=== PATIENT | male | born 1975 | race Caucasian/White ===

== ENCOUNTER 2018-10-28 18:04 | Inpatient (IN) ==
[2018-10-28] MEDS ORDERED: TYLENOL PO ONE (20:12)
[2018-10-28 21:02] LABS: AGAP 12; ALBUMIN 4.2 g/dL (3.5-5.0); ALKALINE PHOSPHATASE 138 U/L (32-122); BUN 18 mg/dL (8-22); CALCIUM 8.8 mg/dL (8.8-10.2); CHLORIDE 98 mmol/L (98-107); COSMO 275; CREATININE 1.1 mg/dL (0.7-1.2); ESTIMATED GFR > 60; GLUCOSE 156 mg/dL (70-104); GOT 10 U/L (10-34); GPT 7 U/L (10-44); SODIUM 135 mmol/L (136-145); TCO2 25 mmol/L (25-35)
[2018-10-28 21:06] LABS: BASO# 0.06 X1000 (0.0-0.2); BASO% 0.3 % (0.0-0.8); EOS# 0.25 X1000 (0.0-0.7); EOS% 1.2 % (0.0-10.0); HEMATOCRIT 40.7 % (42.0-52.0); HEMOGLOBIN 13.1 g/dL (14.0-18.0); IMM GRAN# 0.06 X1000 (0.0-0.04); IMM GRAN% 0.3 % (0.0-0.5); LYMPH# 1.91 X1000 (1.2-3.4); MCH 27.2 PG (27-31); MCHC 32.2 g/dL (33-37); MCV 84.4 FL (81-99); MONO# 1.27 X1000 (0.11-0.59); MPV 11.3 FL (7.4-10.4); NEUT# 17.68 X1000 (1.4-6.5); NEUT% 83.2 % (42.2-75.2); PLT 307 X1000 (130-400); RBC 4.82 XMIL (4.7-6.1); WBC 21.23 X1000 (4.8-10.8)
[2018-10-28] MEDS ORDERED: VANCOMYCIN 1 GM/NS 1 GM/250 ML IVPB IV ONE (21:49)
[2018-10-28] MEDS ORDERED: ZOSYN 3.375 GM in NS 50 ML IV ONE (21:49)
[2018-10-28] MEDS ORDERED: DILAUDID IV ONE (21:49)
[2018-10-28] MEDS ORDERED: ZOFRAN IV ONE (21:49)
--- NOTE | 2018-10-28 21:59 | Diag Imaging Result Doc PS360 ---
EXAM: FOOT COMPLETE LEFT INDICATION: foot wound TECHNIQUE: 3 views COMPARISON: 08/20/2018 FINDINGS: No bony erosion is identified. There is no discrete fracture, dislocation, or significant intrinsic osseous lesion, otherwise. The visualized joint spaces are essentially unremarkable. There is prominent soft tissue edema at the lateral aspect foot and at the dorsum of the foot. There are droplets of subcutaneous gas at the lateral aspect of the forefoot. IMPRESSION: Findings suggesting severe cellulitis. There is no radiographic evidence of osteomyelitis on this study, however. Electronically signed by Butch Mccallum 10/28/2018 9:57 PM
--- NOTE | 2018-10-28 22:08 | PROVIDER DOCUMENTATION ---
This chart was entered by Angela Hodges Scribe, acting as scribe for Hernando Eldridge MD. HPI-Rash/Wound/ReCheck - General Chief Complaint: Sores/Lesions Stated Complaint: EXTREMITY SWELLING Time Seen by Provider: 10/28/18 20:02 Source: patient Allergies/Adverse Reactions: Allergies Allergy/AdvReac Type Severity Reaction Status Date / Time No Known Allergies Allergy Verified 10/28/18 18:22 Home Medications: Home Medication List Medication Instructions Recorded Confirmed Last Taken Type Aspirin [Adult Aspirin] 81 mg PO DAILY 10/28/18 10/28/18 Unknown History Empagliflozin [Jardiance] 10 mg PO DAILY 10/28/18 10/28/18 Unknown History Metformin [Glucophage] 1 tab PO DAILY 10/28/18 10/28/18 Unknown History - History of Present Illness-Dermatology Nature of Presenting Problem: pt is a 43 yr old male presenting with swelling, redness and pain to left foot, pt hx of large callous to plantar surface, lateral aspect left foot, pt was previously been seen by Dr Gallardo, wound care, for same. pt reports 2 days ago area became more painful, swollen and red. pt denies any injury, has appointment with Dr Gallardo scheduled for tomorrow for same. pt reports pain became worse today so he came to ER. Location: reports: feet (left) Quality: reports: painful Severity: reports: severe Onset/Duration: reports: 2 days ago Timing: reports: still present, getting worse Context/Associated Symptoms: reports: swelling/mass/lumps, tender area Identifiable cause?: No Exposure: reports: unknown cause Locality of Occurance: Home Similar Symptoms Previously?: Yes Recently seen or treated by another doctor?: No Review of Systems - Adult - REVIEW OF SYSTEMS - ADULT Constitutional: denies: chills, fever Eyes: reports: no symptoms reported Ears, Nose, Mouth & Throat: reports: no symptoms reported Cardiovascular: reports: no symptoms reported Respiratory: reports: no symptoms reported Gastrointestinal: reports: no symptoms reported Genitourinary: reports: no symptoms reported Musculoskeletal: reports: no symptoms reported Integumentary: reports: skin sores/ulcer Neurological: reports: no symptoms reported Psychiatric: reports: no symptoms reported Endocrine: reports: no symptoms reported Hematologic/Lymphatic: reports: no symptoms reported Allergic/Immunologic: reports: no symptoms reported All Other Systems: Reviewed and Negative Past History - Adult - PAST MEDICAL HISTORY-ADULT Review of Records: reports: Old Records Reviewed, Nursing Assessment Review, Medications Reviewed, Social history reviewed & non-contributory. Major Childhood Illnesses: reports: denies history Cardiovascular: reports: denies history Respiratory: reports: denies history Gastrointestinal: reports: denies history Obstetrical/Gynecological: reports: denies history Genitourinary: reports: denies history Musculoskeletal: reports: denies history Neurological: reports: denies history Endocrine/Immune: reports: denies history Other Conditions: reports: denies history - IMMUNIZATION STATUS Childhood Immunizations: See Nurse Assessment Flu Vaccine: See Nurse Assessment - FAMILY HISTORY Family History: reviewed, not pertinent - SOCIAL HISTORY Smoking: denies Substance Use: denies Living Situation: family Physical Exam-General - PHYSICAL EXAM-ADULT Initial Vital Signs Reviewed: Yes - CONSTITUTIONAL General Appearance: appears well, alert, no apparent distress, obese - EYES Eyes: PERRL/EOMI - HEAD, EARS, NOSE, MOUTH & THROAT HENMT: normocephalic/atraumatic, moist mucous membranes, normal ENT inspection - NECK Neck: non-tender, full range of motion, supple, normal inspection - RESPIRATORY Respiratory: chest non-tender, lungs clear, normal breath sounds - CARDIOVASCULAR Cardiovascular: normal peripheral pulses, tachycardia - GASTROINTESTINAL (ABDOMEN) Abdominal Exam: normal bowel sounds, non tender, soft - LYMPHATIC Lymphatic: no adenopathy - MUSCULOSKELETAL Back Exam: normal inspection, no CVA tenderness, no vertebral tenderness Extremity: normal range of motion, non-tender, normal gait, normal inspection, erythema, inflammation, swelling, tenderness - SKIN Integumentary: normal color, normal turgor, warm/dry, other (large hot, tender, red area to lateral, plantar surface or left foot, fluctuant to lateral aspect) - PSYCHIATRIC Psych/Mental Status: normal mood/affect Progress - PLAN OF CARE/RESULTS Progress/Plan/Lab Results: Vital Signs - 8 hr 10/28/18 18:08 Temperature 99.6 F Pulse Rate 115 H Respiratory Rate 18 Blood Pressure 156/94 O2 Sat by Pulse Oximetry 97 Laboratory Results - last 24 hr 10/28/18 10/28/18 10/28/18 18:21 20:22 20:22 WBC 21.23 H RBC 4.82 Hgb 13.1 L Hct 40.7 L MCV 84.4 MCH 27.2 MCHC 32.2 L RDW Std Deviation 15.0 H Plt Count 307 MPV 11.3 H Immature Gran % (Auto) 0.3 Neut % (Auto) 83.2 H Lymph % (Auto) 9.0 L [place] % (Auto) 6.0 Eos % (Auto) 1.2 Baso % (Auto) 0.3 Immature Gran # (Auto) 0.06 H Neut # (Auto) 17.68 H Lymph # (Auto) 1.91 [place] # (Auto) 1.27 H Eos # (Auto) 0.25 Baso # (Auto) 0.06 Sodium 135 L Potassium 4.0 Chloride 98 Carbon Dioxide 25 Anion Gap 12 BUN 18 Creatinine 1.1 Estimated GFR/1.73 m2 > 60 BUN/Creatinine Ratio 16 Glucose 156 H POC Glucose 132 H Calculated Osmolality 275 Calcium 8.8 Total Bilirubin 0.90 AST 10 ALT 7 L Alkaline Phosphatase 138 H Total Protein 8.0 Albumin 4.2 Globulin 4.0 Albumin/Globulin Ratio 1.0 Orders Category Date Time Status Finger Stick Blood Sugar (ED) DIRECTED Care 10/28/18 18:23 Active FOOT COMPLETE LEFT [RAD] Stat Exams 10/28/18 20:10 Completed CBC WITH ELECTRONIC DIFF [HEME] Stat Lab 10/28/18 20:22 Completed COMPREHENSIVE METABOLIC PANEL [CHEM] Stat Lab 10/28/18 20:22 Completed WOUND CULTURE INC GRAM STAIN [RM] Stat Lab 10/28/18 20:09 Uncollected Acetaminophen [Tylenol] Med 10/28/18 20:12 Discontinued 1,000 mg PO NOW ONE Hydromorphone [Dilaudid] Med 10/28/18 21:49 Discontinued 1 mg IV NOW ONE Ondansetron [Zofran] Med 10/28/18 21:49 Discontinued 4 mg IV NOW ONE Piperacillin/Tazobactam [Zosyn] 3.375 gm Med 10/28/18 21:49 Active 0.9% Sodium Chloride Inj [Ns] 50 ml IV NOW Vancomycin 1 gm/Ns Med 10/28/18 21:49 Active 1 gm in 250 ml IV NOW Transfer/Admit Order [TRANSFER] Routine Transfer 10/28/18 22:04 Ordered Result Diagrams: 10/28/18 20:22 10/28/18 20:22 - CONSULTS/PCP/HOSPITALIST Notification #1 *Consult/PCP/Hospitalist*: Dr Martinez Time Discussed: 21:45 Reason/Comments: plan of care for pt admit Consult Disposition: Admit (transfer to [facility], admit to hospitalist, rishi and renee Zosyn and Vanc before transfer) #2 Consult: Dr Lee Time Discussed: 21:50 Reason/Comments: paln of care for pt admit Consult Disposition: Admit (transfer to [facility] for admit) Procedures - INCISION & DRAINAGE Abscess Type: Subcutaneous Prepped with: Kit Utilized, Betadine Blade Size: 11 Packing placed?: No Drainage: Large Amount, Purulent Departure - Departure Date of Disposition Decision: 10/28/18 Time of Disposition Decision: 22:07 DIAGNOSIS: Abscess of foot, Cellulitis, Leukocytosis Disposition: ADMITTED INPATIENT 09 Certified Medical Emergency: Emergent Condition: Fair Referrals and Follow-Ups: Levi Horvath [Primary Care Provider] - - Critical Care Note This patient required my direct & personal management of CC.: No Attestation - Physician/ REMI Attestation Patient care was provided by Advanced Practice Provider:: No The physician spent face to face time with patient:: Yes Advanced Practice Provider documentation review:: Supervising physician onsite and consulted in the evaluation and care of this patient. The physician did have a face to face encounter with the patient. This chart was documented by the indicated scribe, (Angela Hodges Scribe) and accurately reflects the services I performed and decisions made by me, Hernando Eldridge MD, as attested by the provider's signature.
[2018-10-29 01:49] LABS: HEMATOCRIT 37.5 % (42.0-52.0); HEMOGLOBIN 12.4 g/dL (14.0-18.0); MCH 27.7 PG (27-31); MCHC 33.1 g/dL (33-37); MCV 83.9 FL (81-99); PLT 255 X1000 (130-400); RBC 4.47 XMIL (4.7-6.1); RDW 15.2 % (11.5-14.5); WBC 17.29 X1000 (4.8-10.8)
[2018-10-29 01:50] LABS: BASO# 0.07 X1000 (0.0-0.2); BASO% 0.4 % (0.0-0.8); EOS# 0.31 X1000 (0.0-0.7); EOS% 1.8 % (0.0-10.0); IMM GRAN# 0.04 X1000 (0.0-0.04); IMM GRAN% 0.2 % (0.0-0.5); LYMPH# 1.64 X1000 (1.2-3.4); LYMPH% 9.5 % (20.5-51.1); MONO# 0.96 X1000 (0.11-0.59); MONO% 5.6 % (1.7-9.3); MPV 11.2 FL (7.4-10.4); NEUT# 14.27 X1000 (1.4-6.5); NEUT% 82.5 % (42.2-75.2)
[2018-10-29 01:56] LABS: INR 1.22; PROTIME 15.6 Seconds (11.0-16.0)
[2018-10-29 01:57] LABS: PTT 34.4 Seconds (22.3-41.8)
[2018-10-29] MEDS ORDERED: VANCOMYCIN IV PER PHARMACY MISC SCH (02:00)
[2018-10-29] MEDS ORDERED: NORCO-7.5 PO PRN (02:00)
[2018-10-29] MEDS ORDERED: TYLENOL PO PRN (02:00)
[2018-10-29 02:13] LABS: AGAP 14; BUN 21 mg/dL (8-22); CHLORIDE 100 mmol/L (98-107); COSMO 277; ESTIMATED GFR > 60; GLUCOSE 177 mg/dL (70-104); SODIUM 135 mmol/L (136-145); TCO2 21 mmol/L (25-35)
[2018-10-29] MEDS ORDERED: ZOFRAN IV PRN (02:30)
[2018-10-29] MEDS ORDERED: VANCOMYCIN 1 GM/NS 1 GM/250 ML IVPB IV ONE (03:00)
[2018-10-29] MEDS: ZOSYN 3.375 GM in NS 50 ML IV SCH ×4 (04:37→22:06)
[2018-10-29] MEDS: HUMULIN R SUBQ SCH ×4 (06:28→22:05)
[2018-10-29] MEDS ORDERED: NS 1,000 ML IV SCH (07:00)
--- NOTE | 2018-10-29 08:31 | GENERAL SURGERY CONSULTATION ---
DATE: 10/29/2018 REASON FOR CONSULTATION AND CHIEF COMPLAINT: Infection of the left foot. CONSULTING PHYSICIAN: Hospitalist and emergency department. HISTORY OF PRESENT ILLNESS: This is a 43-year-old gentleman, who has longstanding diabetes reasonably controlled. He was scheduled to see Dr. Gallardo, who has seen before, regarding wounds to his left fifth plantar metatarsal area [facility] for changes that developed Thursday of this week. These progressed. He developed more erythema with low-grade fever at home, worsening pain and swelling. He came to the emergency department where he was found to have a superficial abscess of the lateral aspect of his fifth metatarsal. He underwent incision and drainage by the emergency department there with a large amount of purulent material expressed. He did obtain some relief and has been continued on broad-spectrum antibiotics overnight. MEDICAL HISTORY: Diabetes, hypertension, history of diabetic foot ulcerations. SURGICAL HISTORY: No vascular procedures. He has had no abdominal operations. SOCIAL HISTORY: No tobacco, alcohol, or drugs. He works as a systems lead. FAMILY HISTORY: Reviewed and noncontributory. REVIEW OF SYSTEMS: A 10-point review of systems were performed and negative other than what is mentioned in HPI. PHYSICAL EXAMINATION: Vital signs: He is afebrile currently with no fevers documented overnight, pulse 60, blood pressure 114/69, oxygen saturation 100%. He is 306 pounds, 6 feet, 4 inches. General: He is alert, no acute distress. HEENT: No scleral icterus. No cervical mass. Cardiovascular: Normal rate. Pulmonary: No increased work of breathing. Abdomen: Soft, nontender, nondistended. Integument: Warm and dry. Psychiatric: Appropriate affect. Neurologic: No gross deficits and sensation is grossly intact in his lower extremities. Peripheral vascular: His feet are warm. He has palpable femoral and pedal pulses. Musculoskeletal exam: His left foot is erythematous. He has cellulitis extending proximally to the foot on both the dorsal and plantar aspect with a draining ulceration on the lateral aspect of the foot. There is no jered necrosis. There is some sloughing of the skin overlying this area. Lymphatic: I do not feel any inguinal or cervical adenopathy. LABORATORY: White count was 21 on admission down to 17, hematocrit is 37, platelets 255. INR is 1.22. Creatinine is 1.0, glucose has been as high as 177 and as low as 132. LFTs are normal with the exception of elevation of his alkaline phosphatase. I reviewed a plain film x-ray of his left foot that shows changes suggesting cellulitis but no osteomyelitis and no metallic retained foreign bodies. ASSESSMENT AND PLAN: This is a 43-year-old gentleman with diabetic foot infection that has been partially drained. I do think he needs further washout and exploration in the operating room for source control. He is on appropriate antibiotics. We will go to the operating room today for drainage. We did discuss the possibility of toe amputation unlikely today but possibly in the future depending on how his wound heals and the possibility of drain placement. He understands all of this and consents. He is n.p.o. We will go to the operating room today. cc: Steff Martinez MD
--- NOTE | 2018-10-29 09:46 | EKG Report ---
Test Performed on : 10/29/2018 09:34:39 AM Test Reason : surgery Blood Pressure : / mmHG Vent. Rate : 065 BPM Atrial Rate : 065 BPM P-R Int : 182 ms QRS Dur : 096 ms QT Int : 418 ms P-R-T Axes : 036 087 049 degrees QTc Int : 434 ms Normal sinus rhythm. Normal ECG No previous ECGs available Confirmed by Clair MCCURDY, Dale Frankel ([id number]) on 10/30/2018 12:08:05 PM
[2018-10-29] MEDS ORDERED: ROBINUL ONE ×2 (09:59→11:28)
[2018-10-29] MEDS ORDERED: XYLOCAINE-MPF 2% ONE ×2 (09:59→12:02)
[2018-10-29] MEDS ORDERED: DIPRIVAN 1% ONE ×2 (10:00→11:28)
[2018-10-29] MEDS ORDERED: FENTANYL ONE (10:00)
--- NOTE | 2018-10-29 10:45 | HISTORY AND PHYSICAL ---
PRIMARY CARE PROVIDER: Dr. Horvath in [place]. DATE AND TIME: 10/29/2018 at 0045. CHIEF COMPLAINT: Left foot pain and wound. HISTORY OF PRESENT ILLNESS: Mr. Chu is a 43-year-old male with a past medical history most notable for diabetes mellitus type 2 and hyperlipidemia. The patient states a few months ago he was receiving treatment for a wound on the plantar surface of his left foot. This was being treated by the surgeon, Dr. Gallardo. The patient states on Thursday approximately 2 days ago that he did notice that he was having increased pain in his foot that the wound that was previously a hardened callus area was swollen, and was softer to the touch than normal. He states that since Thursday he has not felt well. He has had fever, pain, swelling, and erythema in his left foot that is now starting to extend up his leg into his left ankle area though he denies any drainage from this wound. He denies any recent injury to his knowledge to this foot as well. He did report a slight headache earlier in the day on 10/28, though other than this the left foot symptoms just previously mentioned, the patient denies any other symptoms at this time. He denies any dizziness, chest pain, shortness of breath, abdominal pain, nausea, vomiting, or diarrhea. He denies any dysuria. He denies any other pain, numbness, tingling or swelling in any of his other extremities except for his left foot. Upon evaluation in the ER, the patient was noted to have leukocytosis with a white blood cell count of 21,230. His left foot was erythematous and swollen. This is worst at the left lateral aspect of his foot. The wound is noted on the plantar surface of the lateral aspect of his foot just superior to his 4th and 5th toes. There is a hardened callus area that is approximately slightly larger than the end of #2 pencil eraser though previously in the ER at [place], they did do an incision and drainage. He does have a small incision that is noted on the left lateral aspect of his foot. This does still have some purulent drainage noted. The wound does have a strong foul odor as well. The patient's foot is erythematous and warm to the touch. Though he does have good distal pulses both dorsalis pedis and posterior tibialis in the left foot. Dr. Martinez with Surgery was notified of the patient. He has accepted him as well. He did want him transferred to [facility] for admission. Wound culture was obtained. The patient has been started on antibiotics of vancomycin and Zosyn. REVIEW OF SYSTEMS: A 14 point review of systems was conducted with the patient. All were negative except for pertinent positives mentioned above in HPI. PAST MEDICAL HISTORY: 1. Diabetes mellitus type 2. 2. Hyperlipidemia. 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 SOCIAL HISTORY: The patient denies any tobacco, alcohol or illicit drug use. FAMILY HISTORY: Positive for his father having a history of heart disease. He has had a myocardial infarction. His mother has a history of hypertension, diabetes mellitus, and Crohn's disease. He does have one sibling who has hypertension. ALLERGIES: Patient has no known allergies. HOME MEDICATIONS: 1. Aspirin 81 mg p.o. daily. 2. Jardiance 10 mg p.o. daily. 3. Glucophage 500 mg p.o. daily. 4. Crestor 5 mg p.o. at bedtime. DIAGNOSTIC DATA/LABORATORY [place]ULTS: [place] [address], hemoglobin 13.1, hematocrit 40.7, and platelet count is 307,000. PT is 15.6, INR 1.2, PTT is 34.4. Sodium 135, potassium 4, chloride 98, serum bicarb 25, BUN 18, creatinine 1.1 with a GFR greater than 60, glucose 156, and calcium 8.8. Liver function tests are within normal limits except for alkaline phosphatase is slightly elevated at 138. Left foot x-ray performed in the ER at [place] showed finding suggestive of severe cellulitis, though there is no radiographic evidence of osteomyelitis on this study. There were droplets of subcutaneous gas at the lateral aspect of the forefoot noted as well. Pending diagnostic studies at this time are blood cultures and wound culture. PHYSICAL EXAMINATION: VITAL SIGNS: Temperature 97.4 degrees, heart rate 72, respirations 18, blood pressure 116/69, and oxygen saturation is 98% on room air. GENERAL: Mr. Chu is a very pleasant 43-year-old male. He was resting in the inpatient bed. He was in no acute distress. He was awake, alert, and able to answer questions appropriately. HEENT: Head is atraumatic, normocephalic. Pupils are 3 mm bilaterally, equal and round. Oral mucosa is moist. NECK: Supple. Trachea midline. CARDIOVASCULAR: Patient has S1-S2 present. No murmurs, gallops, or rubs appreciated with a regular rate and rhythm. PULMONARY: Patient has symmetrical chest expansion bilaterally. Lung sounds are clear to auscultation in bilateral full barroso. ABDOMEN: Soft, nontender. Does not appear to be distended. The patient does have a slightly protuberant abdomen noted. Bowel sounds are present in all 4 quadrants, and were normoactive. EXTREMITIES: No cyanosis or edema noted, though the patient does have erythema, swelling, and warmth noted to his left foot. This is started to his left foot. This does extend up to about approximately the ankle. The worst of this is noted to his distal foot in the left lateral aspect. The patient does have a wound noted to the plantar surface of his foot though this wound is closed and has no drainage noted. It does appear to be a callus that is slightly larger than the end of a #2 pencil eraser though he does have a incision that has been made during incision and drainage at [facility], noted to the left lateral aspect of his foot that does have purulent drainage noted. There was a foul odor coming from the wound as well. Pulse, motor and sensory is intact in all extremities. Pedal pulses including dorsalis pedis and posterior tibialis are 3+. Radial pulses 3+ as well. INTEGUMENTARY: The patient's skin is pink, warm, and dry. Please see above extremities exam for wound descriptions. NEUROLOGICAL: Patient is alert and oriented to person, place, time, and situation. He is able move all extremities. There are no focal neurological deficits noted. ASSESSMENT AND PLAN: 1. Left foot wound and cellulitis. Blood cultures and wound cultures have been obtained. The patient has been placed on antibiotics of vancomycin and Zosyn. We have placed a consult with Dr. Martinez with Surgery as well as the wound care nurse. We will await their evaluation and further recommendations for management. The patient will remain NPO until evaluated by Surgery this morning in case he does require any further surgical intervention. We will also hold his aspirin and any other anticoagulants until he is evaluated by surgery as well. We have provided some p.r.n. pain medications as needed. We will continue to follow. 2. Leukocytosis is likely related to his foot wound. We will continue with strict treatment as mentioned above #1. 3. Diabetes mellitus type 2. We have ordered a hemoglobin A1c. We have placed the patient on sliding scale insulin per low-dose protocol. We will do pattern fingerstick blood sugars. 4. Hyperlipidemia. We will continue the patient's Crestor. 5. Deep vein thrombosis prophylaxis. Until he is evaluated by surgery, we will hold any anticoagulants. We have placed him with SCD's at this time. He has been placed on the medical floor with telemetry. He will have vital signs every 8 hours. We will do strict intake and output. We will repeat a CBC and BMP in the morning. Further orders and recommendations pending hospital course, diagnostic studies, and physician evaluation. Dictated by KALIN Camarillo for Devaughn Lee MD I have performed a face to face diagnostic evaluation. Labs/ xrays- reviewed. Exam- Ext- Left foot erythema. A/P- Left foot cellulitis/ wound- Admit, IV ABX, Surgery consult. Dr. Lee cc: Devaughn Lee MD [facility]
[2018-10-29] MEDS ORDERED: ZEMURON ONE (11:27)
[2018-10-29] MEDS ORDERED: QUELICIN (DOSE) ONE (11:27)
[2018-10-29] MEDS ORDERED: ZOFRAN ONE (11:51)
--- NOTE | 2018-10-29 13:21 | PROGRESS NOTE ---
DATE: 10/29/2018 SUBJECTIVE: Patient reports feeling fine. He had an exquisite pain in the left foot. OBJECTIVE: Vital Signs: Temperature 97.6 degrees, heart rate 75, respiratory rate 18, blood pressure 127/70, O2 saturation 98% on room air. Physical Examination: This is a 43-year-old male, lying in bed, in no acute distress. Cardiovascular: S1, S2 heard. No murmurs, gallops, or rubs. Regular rate and rhythm. Respiratory: Clear bilaterally to auscultation. No work of breathing or using accessory muscles. Abdomen: Soft, nontender to palpation. Bowel sounds present. No organomegaly. Extremities: No clubbing, cyanosis, or edema. Peripheral pulses present in both legs. Neurological: Extremities, left foot is very swollen. Actually in the left lateral aspect there is a fluctuant area noted. There is a small purulent drainage coming with foul odor. Neurological: The patient alert and oriented x3. Moves 4 extremities. LABORATORY DATA: White cell count 17.29, hemoglobin 12.4, hematocrit 37.5, platelets 255,000 with normal BMP. ASSESSMENT AND PLAN: 1. Left foot wound and cellulitis. We will continue with vancomycin and Zosyn. Dr. Martinez from General Surgery has evaluated this patient and he thinks that he will need drainage. That is going to be done in the OR today. There is also possibility of amputation, unlikely today, but that has been mentioned so at this point, we will continue to monitor. 2. Diabetes mellitus type 2. We will continue with Accu-Chek before meals and also at bedtime. 3. Hyperlipidemia. We will continue with Crestor. 4. Disposition: We will monitor this patient closely. cc: Sundeep Baumann MD
[2018-10-29] MEDS ORDERED: VANCOMYCIN 2,000 MG in NS 500 ML IV SCH (15:00)
--- NOTE | 2018-10-29 16:36 | OPERATIVE NOTE ---
PROCEDURE DATE: 10/29/2018 PREOPERATIVE DIAGNOSIS: Left diabetic foot infection. POSTOPERATIVE DIAGNOSIS: Left diabetic foot infection. PROCEDURE PERFORMED: Incision and drainage of deep left foot abscess with excisional debridement down to the underlying level of the muscle, 7 x 4 cm. ESTIMATED BLOOD LOSS: 5 mL. SPECIMENS: Necrotic tissue and wound cultures. ANESTHESIA: General. INDICATION: A 43-year-old gentleman who had a plantar ulcer that became with increasing erythema and swelling of her left lateral foot, leukocytosis. OPERATIVE FINDINGS: There was an abscess extending from a plantar 5th metatarsal ulcer up to the lateral dorsal aspect of the foot, did not go through the interspace. No exposed bone or tendon. OPERATIVE NOTE: Risks, benefits and alternatives were discussed with patient. He consented for the procedure, seen preoperatively, and surgical site was marked. He was taken to the operating room. His left foot was prepped with Betadine and draped in usual fashion after anesthesia was induced. Using a 15 blade scalpel, we debrided the wound back. We disrupted some tunneling and expressed pus culturing it. We irrigated the wound, noting hemostasis. Vashe dressing was applied. He tolerated it well. No complications. cc: Steff Martinez MD
[2018-10-29] MEDS: VANCOMYCIN 2,000 MG in NS 500 ML IV SCH (17:46)
[2018-10-30] MEDS: ZOSYN 3.375 GM in NS 50 ML IV SCH ×4 (05:33→22:05)
[2018-10-30] MEDS: HUMULIN R SUBQ SCH (06:45)
[2018-10-30] MEDS: VANCOMYCIN 2,000 MG in NS 500 ML IV SCH (09:22)
--- NOTE | 2018-10-30 10:55 | PROGRESS NOTE ---
DATE: 10/30/2018 SUBJECTIVE: Patient reports feeling fine. Reports pain in the left foot is controlled. OBJECTIVE: Vital Signs: Temperature 97.7 degrees, heart rate 72, respiratory rate 18, blood pressure 136/72, O2 saturation 96% on room air. General examination: This is a 43-year-old male, lying in bed in no acute distress. Cardiovascular exam: S1, S2 heard. No murmurs, gallops, or rubs. Regular rate and rhythm. Respiratory exam: Clear bilaterally to auscultation. No work of breathing or using accessory muscles. Abdomen: Soft, nontender to palpation. Bowel sounds present. No organomegaly. Extremities: No clubbing, cyanosis or edema. Peripheral pulses present in both legs. The left leg is covered by dressing. Neurological exam: Patient alert and oriented x3. Moves 4 extremities. LABORATORY DATA: Still pending at the time of my dictation. ASSESSMENT AND PLAN: 1. Left diabetic foot infection, status post incision and drainage of deep left foot abscess with excisional debridement. The patient had undergone that procedure yesterday by Dr. Martinez, help appreciated. At this point, we will continue with vancomycin and Zosyn pending results of wound culture. We will consult Dr. Herrmann from Infectious Disease tomorrow to see for how long this patient will need antibiotics, and if those will be intravenous or oral. 2. Diabetes mellitus type 2. Actually the hemoglobin A1c for this patient is not that high, it is 7.0. His diabetes is well controlled. So, at this point we will continue with Accu-Chek before meals and also at bedtime. 3. Hyperlipidemia. We will continue with Crestor. 4. Disposition: We will continue to monitor this patient closely. cc: Sundeep Baumann MD
[2018-10-30 11:09] LABS: BASO# 0.07 X1000 (0.0-0.2); BASO% 0.8 % (0.0-0.8); EOS# 0.31 X1000 (0.0-0.7); EOS% 3.5 % (0.0-10.0); HEMATOCRIT 35.5 % (42.0-52.0); HEMOGLOBIN 11.6 g/dL (14.0-18.0); IMM GRAN# 0.03 X1000 (0.0-0.04); IMM GRAN% 0.3 % (0.0-0.5); LYMPH# 1.53 X1000 (1.2-3.4); LYMPH% 17.4 % (20.5-51.1); MCH 27.9 PG (27-31); MCHC 32.7 g/dL (33-37); MCV 85.3 FL (81-99); MONO# 0.47 X1000 (0.11-0.59); MONO% 5.4 % (1.7-9.3); MPV 10.7 FL (7.4-10.4); NEUT# 6.37 X1000 (1.4-6.5); NEUT% 72.6 % (42.2-75.2); PLT 255 X1000 (130-400); RBC 4.16 XMIL (4.7-6.1); RDW 14.9 % (11.5-14.5); WBC 8.78 X1000 (4.8-10.8)
[2018-10-30 11:24] LABS: AGAP 11; ANISOCYTOSIS 1+; BUN 15 mg/dL (8-22); CALCIUM 8.6 mg/dL (8.8-10.2); CHLORIDE 103 mmol/L (98-107); COSMO 283; CREATININE 0.9 mg/dL (0.7-1.2); EOS 4 % (1-10); ESTIMATED GFR > 60; GLUCOSE 188 mg/dL (70-104); LYMPHS 15 % (21-51); MONO 4 % (1-9); POTASSIUM 4.2 mmol/L (3.5-5.1); SEGS 74 % (42-75); SODIUM 139 mmol/L (136-145); TCO2 25 mmol/L (25-35)
[2018-10-30 11:25] LABS: LARGE PLATELETS 1+; MICROCYTOSIS 1+; POIKILOCYTOSIS 1+
--- NOTE | 2018-10-30 13:25 | GENERAL SURGERY PROGRESS NOTE ---
DATE: 10/30/2018 SUBJECTIVE: The patient is doing okay. He does have pain and swelling in his left foot. OBJECTIVE: Vital Signs: He is afebrile. Vital signs are stable. General: He is awake, alert, oriented x3. No acute distress. Extremities: The left foot was examined. It is swollen and red and warm. The wound was examined. It is clean. No gross purulence or necrotic tissue. ASSESSMENT AND PLAN: A 43-year-old male with left diabetic foot infection status post debridement. He still has quite a bit of cellulitis. He will continue with saline wet-to-dry for the wound, and vancomycin and Zosyn for the foot infection. cc: Juma Alva MD
[2018-10-30] MEDS: HUMALOG SUBQ SCH ×3 (15:23→20:51)
[2018-10-31] MEDS: VANCOMYCIN 2,000 MG in NS 500 ML IV SCH (04:04)
[2018-10-31] MEDS: HUMALOG SUBQ SCH ×4 (06:48→20:57)
[2018-10-31 07:27] LABS: BASO# 0.07 X1000 (0.0-0.2); BASO% 0.6 % (0.0-0.8); EOS# 0.41 X1000 (0.0-0.7); EOS% 3.7 % (0.0-10.0); HEMATOCRIT 35.3 % (42.0-52.0); HEMOGLOBIN 11.5 g/dL (14.0-18.0); IMM GRAN# 0.03 X1000 (0.0-0.04); IMM GRAN% 0.3 % (0.0-0.5); LYMPH# 2.02 X1000 (1.2-3.4); LYMPH% 18.4 % (20.5-51.1); MCH 27.8 PG (27-31); MCHC 32.6 g/dL (33-37); MCV 85.3 FL (81-99); MONO# 0.66 X1000 (0.11-0.59); MPV 10.6 FL (7.4-10.4); NEUT# 7.77 X1000 (1.4-6.5); PLT 253 X1000 (130-400); RBC 4.14 XMIL (4.7-6.1); RDW 14.8 % (11.5-14.5); WBC 10.96 X1000 (4.8-10.8)
[2018-10-31 07:52] LABS: AGAP 10; BUN 12 mg/dL (8-22); CALCIUM 8.5 mg/dL (8.8-10.2); CHLORIDE 106 mmol/L (98-107); COSMO 281; ESTIMATED GFR > 60; GLUCOSE 164 mg/dL (70-104); POTASSIUM 4.1 mmol/L (3.5-5.1); SODIUM 139 mmol/L (136-145); TCO2 23 mmol/L (25-35)
[2018-10-31] MEDS: ZOSYN 3.375 GM in NS 50 ML IV SCH (09:37)
--- NOTE | 2018-10-31 11:43 | PROGRESS NOTE ---
DATE: 10/31/2018 SUBJECTIVE: The patient reports today some numbing and tingling of both lower extremities. He reports also intermittent pain in the surgical area. OBJECTIVE: Vital Signs: Temperature 97.6 degrees, heart rate 66, respiratory rate 19, blood pressure 114/76, O2 saturation 99% on room air. General Examination: This is a 43-year-old, male, lying in bed, in no acute distress. Cardiovascular Examination: S1 and S2 heard. No murmurs, gallops, or rubs. Regular rate and rhythm. Respiratory Examination: Clear bilaterally to auscultation. No work of breathing or using accessory muscles. Abdomen: Soft. Nontender to palpation. Bowel sounds present. No organomegaly. Extremities: No clubbing, cyanosis, or edema. Peripheral pulses present in both legs. His left foot is covered by a dressing. Neurological Examination: The patient is alert and oriented x3. Moves 4 extremities. Laboratory Data: White cell count is 10.96, hemoglobin 11.5, hematocrit 25.3. BMP unremarkable. ASSESSMENT AND PLAN: 1. Left diabetic foot infection, status post incision and drainage of the deep left foot abscess with excisional debridement, postoperative day #2. The patient is stable, being followed by general surgery. At this point, infectious disease consult pending to see for how long this patient is going to need antibiotics and if those are going to be intravenous or by mouth. 2. Diabetes mellitus type 2. We will continue with Accu-Chek before meals and also at bedtime, and also sliding scale insulin as well. 3. Peripheral neuropathy. I think this patient is experiencing symptoms of that condition so at this point, we will start Neurontin 300 mg by mouth twice daily. 4. Hyperlipidemia. We will continue Crestor. 5. Disposition. At this point, we will continue to monitor this patient closely. The patient will be discharged once he is cleared by general surgery. cc: Sundeep Baumann MD
[2018-10-31] MEDS: ROCEPHIN 2 GM in NS 50 ML IV SCH ×2 (12:22→23:06)
[2018-10-31] MEDS: NEURONTIN PO SCH ×2 (12:22→20:58)
--- NOTE | 2018-10-31 13:44 | GENERAL SURGERY PROGRESS NOTE ---
DATE: 10/31/2018 SUBJECTIVE: The patient is doing okay. Continues to have some pain in his foot. He has not noticed any changes overnight. OBJECTIVE: Vital signs: He is afebrile. Vital signs are stable. General: He is awake, alert, oriented x3. No acute distress. Extremities: The left foot is examined. It remains moderately swollen, red, and warm. The wound, however, has no purulence or necrotic tissue. It does not probe to bone. LABORATORY: White blood cell count 10.9, hemoglobin 11.5, hematocrit 35. ASSESSMENT AND PLAN: 43-year-old male with left diabetic foot infection and chronic nonhealing wound who is status post debridement. He has cellulitis of the foot. He is on vancomycin and Zosyn. We will order an MRI to assess for underlying osteomyelitis. cc: Juma Alva MD
--- NOTE | 2018-10-31 14:10 | INFECTIOUS DISEASE CONSULT REP ---
DATE: 10/31/2018 CONCLUSION: The patient is status post incision and drainage of a left foot abscess. The foot also has cellulitis. There is a possibility that the patient has osteomyelitis of the foot and also, there may be a foreign body in the foot because the patient tells me approximately a year ago, he cut his foot with glass. The patient said that the glass was removed, however. The patient may have osteomyelitis as well as the cellulitis and abscess. RECOMMENDATIONS: I have switched the patient from vancomycin and Zosyn to Rocephin 2 g IV every 12 hours. Also, I have ordered an MRI of the patient's left foot and specifically put in the request to rule out osteomyelitis and a foreign body in the foot. DISCUSSION: The patient, in the past 5 days, his foot became very red and swollen. He also had fever. He was taken to surgery by Dr. Martinez who found an abscess which has been drained. The patient has been receiving vancomycin and Zosyn. The patient told me that a year ago, he cut his left foot on a piece of glass and since that time, the foot intermittently drains pus. The patient did say that the glass was removed from his foot. The patient's CBC shows a white count of 10,960, hemoglobin 11.5, and platelet count of 253,000. Creatinine is 1. GFR is greater than 60. Alkaline phosphatase is 138. Glucose is 176. Both cultures from the foot are growing group B strep which is also called Streptococcus agalactiae. The x-ray of the patient's foot showed cellulitis but no osteomyelitis. PAST MEDICAL HISTORY/REVIEW OF SYSTEMS: Eyes and Ears: He sees and hears good. Neck: No stiffness. Respiratory: No cough or shortness of breath. Cardiac: No chest pain or palpitations. GI: No nausea, vomiting, or diarrhea. : No dysuria or flank pain. Neurologic: No seizures. No loss of motor or sensory function. Integument: No rash. Bones, Joints, and Muscles: See present illness. 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 MEDICAL DISEASES: Positive for diabetes mellitus and obesity, hyperlipidemia. INFECTIOUS DISEASE HISTORY: Positive for sinusitis. Negative for pneumonia. FAMILY HISTORY: Positive for diabetes mellitus, hypertension, myocardial infarction, and cancer. SOCIAL HISTORY: [place] He is . He does not smoke cigarettes, drink alcoholic beverages, or abuse drugs. He has cats and a dog for pets. ALLERGIES: He has no known drug allergies. MEDICATIONS: His medications taken at home include aspirin, Jardiance, metformin, and rosuvastatin. PHYSICAL EXAMINATION: Vital Signs: Temperature is 97.6 degrees, pulse 66, respirations 19, blood pressure 114/76, the patient weighs 306 pounds. General: This is an obese, middle-aged male. He is in no acute distress. Head, Eyes, Ears, Nose, and Throat: He can hear my spoken words and see near objects. He does not have any white patches on his tongue. Neck: No meningismus. Lungs: Clear to auscultation. Cardiovascular: Heart rate is regular. Abdomen: Soft and nontender. Extremities: The dressing was removed by Dr. Alva from the patient's left foot. The foot is erythematous and swollen. The wound showed beefy red tissue. There was a minimal serous drainage. There was no odor to the foot. Neurologic: The patient is alert. He can move his extremities. There is no tremor. His sensation is intact to touch. His memory as regarding his medical history is intact. Integument: No rash. Thank you for the consult. cc: Mann Herrmann MD
[2018-11-01] MEDS: HUMALOG SUBQ SCH ×4 (06:15→21:16)
[2018-11-01 07:13] LABS: BASO# 0.08 X1000 (0.0-0.2); BASO% 0.8 % (0.0-0.8); EOS# 0.34 X1000 (0.0-0.7); EOS% 3.3 % (0.0-10.0); HEMATOCRIT 37.6 % (42.0-52.0); HEMOGLOBIN 12.3 g/dL (14.0-18.0); IMM GRAN# 0.02 X1000 (0.0-0.04); IMM GRAN% 0.2 % (0.0-0.5); LYMPH# 1.96 X1000 (1.2-3.4); MCH 27.8 PG (27-31); MCHC 32.7 g/dL (33-37); MCV 85.1 FL (81-99); MONO% 4.8 % (1.7-9.3); MPV 10.6 FL (7.4-10.4); NEUT# 7.41 X1000 (1.4-6.5); NEUT% 71.9 % (42.2-75.2); PLT 279 X1000 (130-400); RBC 4.42 XMIL (4.7-6.1); RDW 14.6 % (11.5-14.5); WBC 10.31 X1000 (4.8-10.8)
[2018-11-01 07:44] LABS: AGAP 12; BUN 11 mg/dL (8-22); CALCIUM 9.1 mg/dL (8.8-10.2); CHLORIDE 104 mmol/L (98-107); COSMO 288; CREATININE 0.9 mg/dL (0.7-1.2); ESTIMATED GFR > 60; GLUCOSE 171 mg/dL (70-104); POTASSIUM 4.6 mmol/L (3.5-5.1); SODIUM 143 mmol/L (136-145); TCO2 27 mmol/L (25-35)
[2018-11-01] MEDS: NEURONTIN PO SCH ×2 (10:08→21:14)
[2018-11-01] MEDS: ROCEPHIN 2 GM in NS 50 ML IV SCH (12:04)
--- NOTE | 2018-11-01 12:33 | Diag Imaging Result Doc PS360 ---
MRI LOWER EXT JT W/CON-LEFT - 11/01/2018 INDICATION: L foot abscess, R/O osteomyelitis and foreign body TECHNIQUE: MRI left foot without and with intravenous contrast COMPARISON: None FINDINGS: The bones are intact and normal in signal. No bone marrow edema. There is pedal edema throughout the dorsum of the foot. There is also focal edema at the lateral fifth metatarsal head. At the lateral fifth metatarsophalangeal joint, there is a tiny very superficial circumscribed oval fluid collection. This measures about 13 x 5 mm. No obvious foreign body. IMPRESSION: Negative for osteomyelitis. Pedal edema. Soft tissue edema and tiny superficial subcutaneous fluid collection at the fifth metatarsophalangeal joint. Likely represents a tiny cutaneous abscess. Electronically signed by Indio Benito 11/01/2018 12:31 PM
--- NOTE | 2018-11-01 16:23 | PROGRESS NOTE ---
DATE: 11/01/2018 SUBJECTIVE: The patient has no major complaints. OBJECTIVE: Blood pressure is 140/69, heart rate of 65, respiratory rate of 20, temperature 97.6 degrees, 99% on room air.Cardiovascular: Regular rate and rhythm. Pulmonary: Bilateral breath sounds clear to auscultation. His right foot is bandaged. LABORATORY DATA: White count 10, hemoglobin and hematocrit 12 and 37, platelets of 279,000. Glucose 256. PROBLEM LIST: 1. Diabetic foot ulcer of the left foot. He has had debridement, postoperative day 3. There is no osteo, so I do not think he absolutely requires IV antibiotics but I will discuss with Dr. Herrmann. 2. Type 2 diabetes is still not completely under control. He is not on any maintenance medications. His blood sugars are above 200. He should be getting metformin and Jardiance and none of that has been restarted. I guess maybe because of his NPO status but I am going to resume those. We may need to make further adjustments. DISPOSITION: Pending surgical and ID agreement on treatment. We will continue to follow. cc: Vern Whitt MD
[2018-11-01] MEDS: NON-FORMULARY MED (Empagliflozin [Jardiance] 10 MG) PO SCH (16:54)
[2018-11-01] MEDS: GLUCOPHAGE PO SCH (16:54)
--- NOTE | 2018-11-01 19:16 | GENERAL SURGERY PROGRESS NOTE ---
DATE: 11/01/2018 SUBJECTIVE: Feels much better, no fevers, no tachycardia. He had an MRI that is negative for osteomyelitis. No fevers. On his left foot the cellulitis improving. The wound is clean. I do not see obvious purulence, toes well perfused, white count 10, hematocrit 37, creatinine 0.9. ASSESSMENT AND PLAN: This 43-year-old gentleman with left diabetic foot infection has grown strep group B [*] with osteomyelitis suspect, will transition to oral antibiotics and treat him another week or 2 so I can [facility]. cc: Steff Martinez MD
--- NOTE | 2018-11-01 19:43 | INFECTIOUS DISEASE PROGRESS NO ---
DATE: 11/01/2018 The patient is status post incision and drainage of a left foot group B streptococcal abscess, and the patient also has cellulitis of the foot. I have discussed the patient's treatment with Dr. Whitt and Dr. Martinez. We all agree to send the patient home on Pen-VK 500 mg p.o. every 8 hours for 2 weeks. I have requested that the patient come to my office in [address] Martinez will be seeing the patient in his office, also. Some of the side effects of penicillin, namely rash and diarrhea, have been explained to the patient who agrees with treatment. cc: Mann Herrmann MD
[2018-11-02] MEDS: ROCEPHIN 2 GM in NS 50 ML IV SCH (00:43)
[2018-11-02] MEDS: HUMALOG SUBQ SCH (06:05)
[2018-11-02 07:31] LABS: BASO# 0.08 X1000 (0.0-0.2); BASO% 0.7 % (0.0-0.8); EOS% 3.3 % (0.0-10.0); HEMOGLOBIN 13.7 g/dL (14.0-18.0); IMM GRAN# 0.05 X1000 (0.0-0.04); IMM GRAN% 0.4 % (0.0-0.5); LYMPH% 16.6 % (20.5-51.1); MCH 27.5 PG (27-31); MCHC 32.6 g/dL (33-37); MCV 84.3 FL (81-99); MONO# 0.62 X1000 (0.11-0.59); MONO% 5.1 % (1.7-9.3); MPV 10.7 FL (7.4-10.4); NEUT% 73.9 % (42.2-75.2); PLT 310 X1000 (130-400); RBC 4.98 XMIL (4.7-6.1); RDW 14.8 % (11.5-14.5); WBC 12.05 X1000 (4.8-10.8)
[2018-11-02 08:02] LABS: CHLORIDE 99 mmol/L (98-107); POTASSIUM 4.5 mmol/L (3.5-5.1); SODIUM 138 mmol/L (136-145); TCO2 23 mmol/L (25-35)
[2018-11-02 08:03] LABS: AGAP 16; BUN 14 mg/dL (8-22); CALCIUM 9.7 mg/dL (8.8-10.2); COSMO 278; ESTIMATED GFR > 60; GLUCOSE 136 mg/dL (70-104)
[2018-11-02 08:33] VITALS: BP 111/57
[2018-11-02] MEDS: GLUCOPHAGE PO SCH (09:43)
[2018-11-02] MEDS: NON-FORMULARY MED (Empagliflozin [Jardiance] 10 MG) PO SCH (09:43)
[2018-11-02] MEDS: NEURONTIN PO SCH (09:43)
--- NOTE | 2018-11-02 14:26 | DISCHARGE SUMMARY ---
ADMISSION DATE: 10/28/2018 DISCHARGE DATE: 11/02/2018 SUBJECTIVE: Patient has no major complaints. He is willing to go home. OBJECTIVE: Vital Signs: Blood pressure 111/57, heart rate 63, respiratory rate 18, temperature 95.5 degrees, 98% on room air. Cardiovascular: Regular rate and rhythm. Pulmonary: Bilateral breath sounds clear to auscultation. Gastrointestinal: Abdomen soft, nontender, nondistended. Bowel sounds are positive. ASSESSMENT/PLAN: The patient was stable. He has no osteomyelitis. We will treat him with oral penicillin per Dr. Herrmann for his diabetic foot ulcer. Follow up with Dr. Martinez and Dr. Herrmann as an outpatient. This is a [id number] encounter note with Annie Torres. cc: Vern Whitt MD MTDD
--- NOTE | 2018-11-02 21:54 | DISCHARGE SUMMARY ---
ADMISSION DATE: 10/28/2018 DISCHARGE DATE: 11/02/2018 PRIMARY CARE PHYSICIAN: Dr. Horvath in [place]. ADMISSION DIAGNOSES: 1. Left foot wound and cellulitis. 2. Leukocytosis. 3. Diabetes type 2. 4. Hyperlipidemia. DISCHARGE DIAGNOSES: 1. Diabetic foot ulcer of the left foot status post debridement postop day 4. 2. Diabetes type 2, uncontrolled. 3. Leukocytosis, resolved. 4. Hyperlipidemia. SUMMARY OF FINDINGS: This is a 43-year-old male who presented with a several-month history of being treated for a wound on the plantar surface of his left foot being treated by surgeon, Dr. Gallardo. He stated that on Thursday, approximately 2 days prior, he noticed that he was having increased pain in his foot and that the wound that was previously a hardened callus was now swollen and softer to touch than normal and noted that he had not felt well for the past couple of days and had a fever, pain, swelling, and erythema in the left foot that was now starting to extend up into his leg and his left ankle. He denied any drainage from that wound. When he arrived he was noted to have a white blood cell count of 21,230. The left foot was erythematous and swollen. The wound was on the plantar surface of the lateral aspect of his foot just superior to his 4th and 5th toes. There was a hardened callus area that was slightly larger than the end of a #2 pencil eraser though previously in the ER [place] they did do an incision and drainage. He did have a small incision that was noted on the left lateral aspect of his foot and had some purulent drainage noted with a foul odor, erythematous, and warmth to touch. So he was admitted. He was followed by General Surgery. We did do a lower extremity MRI that was negative for osteomyelitis. We had Infectious Disease to follow along as well. He continued on IV antibiotics, and his wound cultures grew out a strep agalactiae group B. He was treated appropriately. His white count is back down to normal range, and it is now felt that he can safely be discharged home today. DISCHARGE MEDICATIONS: Include aspirin 81 mg p.o. daily, Jardiance 10 mg p.o. daily, metformin 500 mg p.o. daily, pen VK 500 mg p.o. q .8 hours for 14 days, and rosuvastatin 5 mg p.o. at bedtime. FOLLOWUPS: He will have a followup with Infectious Disease on 11/16/2018 at 8:30 a.m. He will be followed at the [facility] on 11/11/2018 at 11:30. Then he will need to follow up with primary care in the next 1 to 2 weeks and call their office for an appointment. All discharge instructions were reviewed with the patient and he verbalized understanding. TIME SPENT: This is a 35-minute discharge. Dictated by KALIN De Paz for Vern Whitt MD cc: KALIN De Paz MD [facility]
== END 2018-11-02 12:19 | disposition home or self-care (01) | DRG 623 ==
LOC: P.ED 18:04 → 3N 18:05 → SUATTDRO 18:05
PROVIDERS: ATTEND Internal Medicine